=== PATIENT | male | born 1975 | race African-American/Black ===

== ENCOUNTER → 2016-11-19 | Day surgery (SDC) | payer OTHER ==
[~2016-11-19] MED LIST: NO MEDICATIONS
--- NOTE | ~2016-11-19 | OR ---
Unit #: [id number]: [id number] Patient: WILL GARCIA [id number] [facility]. [place], [place] [address] [id number] O MR#: [id number] NAME: WILL GARCIA ROOM: Date of Procedure: 11/19/2016 Admission Date: 11/19/2016 Surgeon: James Bello M.D. : 1975 Attending Physician: James Bello M.D. Primary Care Physician: Primary Care Physician No OPERATIVE REPORT PREOPERATIVE DIAGNOSIS Right inguinal hernia. POSTOPERATIVE DIAGNOSIS Indirect right inguinal hernia. PROCEDURE PERFORMED Laparoscopic preperitoneal inguinal hernia repair, right inguinal hernia. 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 ANESTHESIA General anesthesia. ESTIMATED BLOOD LOSS Minimal. IV FLUIDS 800 crystalloid. COMPLICATIONS None. INDICATIONS FOR PROCEDURE The patient is a 41-year-old with a bulge in his right groin consistent with an inguinal hernia. DESCRIPTION OF PROCEDURE The patient was taken to the operating theater and placed in the supine position. General anesthesia was induced. His abdomen was prepped and draped. A 5-mm Optiview trocar was placed in the left upper quadrant without difficulty. The abdomen was insufflated to 15 mmHg with CO2. The patient was placed in Trendelenburg. I identified the right-sided indirect inguinal hernia, not incarcerated. There was no left-sided hernia. There were no adhesions at his previous umbilical hernia site. The pneumoperitoneum was released. I then made a small incision, infraumbilical. I then made an incision into the anterior sheath. I created the preperitoneal space in the right side only using the balloon dissection system. I then placed two 5-mm ports in the midline. I dissected the right groin, identifying the Unit #: [id number] #: [id number] Patient: WILL GARCIA lateral space. The cord was skeletonized, and the hernia sac was from the cord and reduced. I identified Sander ligament. I placed a large 3DMax mesh into position. This was anteriolized and covered the direct and indirect space. This was secured to Sander ligament as well as lateral anterior musculature with the SorbaFix tacker. Hemostasis was adequate. I removed the ports. I desufflated the preperitoneal space. Care was taken to avoid the peritoneum from sliding posterior to the mesh. I then removed the ports and closed the fascia with 0 Vicryl and the skin with 4-0 Vicryl. The patient tolerated the procedure well and sent to the recovery room in good condition. Dictated by... Tricia Del Angel/charles TD: 11/20/2016 09:37 JOB #: [id number] OPERATIVE REPORT Page 1 of 1 X James Bello MD X PROCEDURE OPERATIVE NOTE
== END | disposition home or self-care (01) ==
LOC: CSUR 05:09
DX: K40.90 Unilateral inguinal hernia, without obstruction or gangrene, not specified as recurrent (principal)
CPT/HCPCS: C1781; J0330; J0690; J1644; J2250; J2710; J3010